=== PATIENT | female | born 1990 | race African-American/Black ===

== ENCOUNTER 2018-09-09 11:45 | Inpatient (IN) ==
[2018-09-09] MEDS ORDERED: CLINDAMYCIN INJ 600 MG in PREMIX 1 EACH IV STA (12:10)
[2018-09-09 13:01] LABS: Basophils % 0.5 % (0.0-0.8); Eosinophils # 0.3 10*3/uL (0.0-0.87); Eosinophils % 4.4 % (0.00-10.9); Hematocrit 43.9 VOL% (35.7-47.0); Hemoglobin 14.1 GM/DL (12.0-16.0); Immature Granulocytes % 0.2 %; Immature Granulocytes Absolute 0.01 #; Lymphocytes # 2.3 10*3/uL (1.4-4.0); Lymphocytes % 35.4 % (21.3-54.2); Mean Corpuscular HGB Conc 32.1 GM/DL (32-36); Mean Corpuscular Volume 87.3 FL (87-102); Mean Platelet Volume 8.6 FL (9.6-12.0); Monocytes % 8.2 % (1.7-12.7); Neutrophils % 51.3 % (38.7-73.9); Platelet Count 265 T/CUMM (130-400); Red Blood Count 5.03 MC/CUMM (3.8-5.5); Red Cell Distribution Width 12.3 % (9.3-17.3); White Blood Count 6.4 T/CUMM (4-12)
[2018-09-09 13:21] LABS: Band Neutrophils 1 % (0-10); Eosinophils 3 % (0-10); Hypochromasia 1+; Lymphocytes 33 % (20-55); Segmented Neutrophils 57 % (50-85); Total Cells Counted 100
[2018-09-09 13:22] LABS: Microcytosis 1+; Platelet Estimate Normal
[2018-09-09 13:55] LABS: Alanine Aminotransferase 40 U/L (13-56); Albumin 3.8 G/DL (3.4-5.0); Alkaline Phosphatase 66 U/L (45-117); Aspartate Amino Transferase 69 U/L (0-37); Bilirubin,Total < 0.39 MG/DL (0.2-1.0); Blood Urea Nitrogen 14 MG/DL (7-18); Calcium 9.1 MG/DL (8.5-10.1); Glucose 264 MG/DL (74-106); Osmolality,Calculated 277.2 MOS/KG (273-304); Total Protein 8.3 G/DL (6.4-8.3)
[2018-09-09] MEDS ORDERED: SODIUM CHLORIDE 0.9% 1,000 ML IV STA (14:31)
[2018-09-09] MEDS ORDERED: INSULIN REGULAR 100 UNIT/ML SUBCUT STA (14:56)
[2018-09-09] MEDS ORDERED: ONDANSETRON 4 MG/2 ML VIAL IV PRN (16:35)
[2018-09-09] MEDS ORDERED: GLUCAGON 1 MG VIAL IM PRN (16:35)
[2018-09-09] MEDS ORDERED: DEXTROSE 50% 25 GM/50 ML VIAL IV PRN (16:35)
[2018-09-09] MEDS: ENOXAPARIN 40 MG/0.4 ML SYRINGE SUBCUT SCH (17:21)
[2018-09-09 17:26] LABS: Apearance,Urine CLEAR (Clear); Bilirubin,Urine Negative (Negative); Blood, Urine Negative (Negative); Glucose,Urine (UA) >=500 mg/dL (Negative); Ketones,Urine 20 mg/dL (Negative); Mucus,Urine Few /LPF (Occasional); Nitrite,Urine Negative (Negative); Protein,Urine >=500 MG/DL; RBC,Urine 4 /HPF (0-4); Squamous Epithelial Cell,Urine Occasional /HPF (0-10); Urine Color Yellow (Yellow); Urine Specific Gravity 1.027 (1.001-1.035); Urine Urobilinogen < 2.0 EU/DL (0.2-1.0); WBC,Urine 7 /HPF (0-6)
[2018-09-09 18:25] LABS: HIV Antigen/Antibody Result Nonreactive (Nonreactive)
[2018-09-09] MEDS ORDERED: CLINDAMYCIN INJ 600 MG in PREMIX 1 EACH IV SCH (20:00)
[2018-09-09] MEDS: INSULIN GLARGINE 100 UNIT/ML SUBCUT SCH (21:43)
[2018-09-09] MEDS: INSULIN LISPRO 100 UNIT/ML SUBCUT SCH (21:43)
[2018-09-09] MEDS: valACYclovir 500 MG TABLET PO SCH (21:44)
[2018-09-10] MEDS: MORPHINE 4 MG/1 ML VIAL IV PRN ×2 (00:12→09:37)
[2018-09-10] MEDS: metroNIDAZOLE INJ 500 MG in PREMIX 1 EACH IV SCH ×4 (03:39→19:22)
[2018-09-10 05:40] LABS: Basophils % 0.5 % (0.0-0.8); Eosinophils # 0.4 10*3/uL (0.0-0.87); Eosinophils % 6.6 % (0.00-10.9); Hematocrit 41.3 VOL% (35.7-47.0); Hemoglobin 13.1 GM/DL (12.0-16.0); Immature Granulocytes % 0.3 %; Immature Granulocytes Absolute 0.02 #; Lymphocytes # 2.7 10*3/uL (1.4-4.0); Lymphocytes % 47.6 % (21.3-54.2); Mean Corpuscular HGB Conc 31.7 GM/DL (32-36); Mean Corpuscular Volume 88.1 FL (87-102); Mean Platelet Volume 8.5 FL (9.6-12.0); Monocytes % 8.3 % (1.7-12.7); Neutrophils % 36.7 % (38.7-73.9); Platelet Count 265 T/CUMM (130-400); Red Blood Count 4.69 MC/CUMM (3.8-5.5); Red Cell Distribution Width 12.4 % (9.3-17.3); White Blood Count 5.8 T/CUMM (4-12)
[2018-09-10 05:53] LABS: Calcium 8.6 MG/DL (8.5-10.1); Risk Ratio 4.35; Thyroid Stimulating Hormone 1.63 uIU/ml (0.358-3.74); VLDL CHOLESTEROL 29.2 MG/DL
[2018-09-10 06:34] LABS: Atypical Lymphocytes Few; Band Neutrophils 2 % (0-10); Eosinophils 2 % (0-10); Lymphocytes 51 % (20-55); Metamyelocytes 1 %; Platelet Estimate Normal; Reactive Lymphocytes Few; Segmented Neutrophils 35 % (50-85); Total Cells Counted 100
[2018-09-10 06:35] LABS: Hypochromasia 1+
[2018-09-10] MEDS: INSULIN LISPRO 100 UNIT/ML SUBCUT SCH ×4 (09:30→21:15)
[2018-09-10] MEDS: LISINOPRIL 20 MG TABLET PO SCH (09:40)
[2018-09-10] MEDS: valACYclovir 500 MG TABLET PO SCH ×2 (09:40→21:14)
[2018-09-10] MEDS: PANTOPRAZOLE 40 MG TABLET PO SCH (09:40)
[2018-09-10] MEDS: ENOXAPARIN 40 MG/0.4 ML SYRINGE SUBCUT SCH (19:22)
[2018-09-10] MEDS: DOXYCYCLINE HYCLATE INJ 100 MG in SODIUM CHLORIDE 0.9% 100 ML IV SCH (21:13)
[2018-09-10] MEDS: FLUCONAZOLE 200 MG TABLET PO SCH (21:14)
[2018-09-10] MEDS: INSULIN GLARGINE 100 UNIT/ML SUBCUT SCH (21:14)
[2018-09-11] MEDS: metroNIDAZOLE INJ 500 MG in PREMIX 1 EACH IV SCH ×3 (00:44→18:18)
[2018-09-11 05:13] LABS: Basophils % 0.4 % (0.0-0.8); Eosinophils # 0.3 10*3/uL (0.0-0.87); Eosinophils % 5.4 % (0.00-10.9); Hematocrit 39.8 VOL% (35.7-47.0); Hemoglobin 12.9 GM/DL (12.0-16.0); Immature Granulocytes % 0.2 %; Immature Granulocytes Absolute 0.01 #; Lymphocytes # 2.7 10*3/uL (1.4-4.0); Lymphocytes % 48.9 % (21.3-54.2); Mean Corpuscular HGB Conc 32.4 GM/DL (32-36); Mean Corpuscular Volume 86.7 FL (87-102); Mean Platelet Volume 8.6 FL (9.6-12.0); Monocytes % 6.1 % (1.7-12.7); Platelet Count 261 T/CUMM (130-400); Red Blood Count 4.59 MC/CUMM (3.8-5.5); Red Cell Distribution Width 12.2 % (9.3-17.3); White Blood Count 5.6 T/CUMM (4-12)
[2018-09-11 05:33] LABS: Calcium 8.6 MG/DL (8.5-10.1); Osmolality,Calculated 278.8 MOS/KG (273-304)
[2018-09-11] MEDS: valACYclovir 500 MG TABLET PO SCH ×2 (10:23→20:37)
[2018-09-11] MEDS: DOXYCYCLINE HYCLATE INJ 100 MG in SODIUM CHLORIDE 0.9% 100 ML IV SCH ×2 (10:24→20:35)
[2018-09-11] MEDS: PANTOPRAZOLE 40 MG TABLET PO SCH (10:24)
[2018-09-11] MEDS: INSULIN LISPRO 100 UNIT/ML SUBCUT SCH ×4 (10:24→20:37)
[2018-09-11] MEDS: LISINOPRIL 20 MG TABLET PO SCH (10:24)
[2018-09-11] MEDS ORDERED: ONDANSETRON ODT 4 MG TABLET PO ONE (16:40)
[2018-09-11] MEDS: ENOXAPARIN 40 MG/0.4 ML SYRINGE SUBCUT SCH (18:19)
[2018-09-11] MEDS: INSULIN GLARGINE 100 UNIT/ML SUBCUT SCH (20:38)
[2018-09-12] MEDS: metroNIDAZOLE INJ 500 MG in PREMIX 1 EACH IV SCH ×2 (00:47→10:46)
[2018-09-12 06:04] LABS: Basophils % 0.3 % (0.0-0.8); Eosinophils # 0.2 10*3/uL (0.0-0.87); Eosinophils % 3.8 % (0.00-10.9); Hematocrit 39.5 VOL% (35.7-47.0); Hemoglobin 12.6 GM/DL (12.0-16.0); Immature Granulocytes % 0.2 %; Immature Granulocytes Absolute 0.01 #; Lymphocytes # 2.9 10*3/uL (1.4-4.0); Lymphocytes % 45.8 % (21.3-54.2); Mean Corpuscular HGB Conc 31.9 GM/DL (32-36); Mean Corpuscular Volume 87.6 FL (87-102); Mean Platelet Volume 8.8 FL (9.6-12.0); Monocytes % 6.1 % (1.7-12.7); Neutrophils % 43.8 % (38.7-73.9); Platelet Count 282 T/CUMM (130-400); Red Blood Count 4.51 MC/CUMM (3.8-5.5); Red Cell Distribution Width 12.2 % (9.3-17.3); White Blood Count 6.4 T/CUMM (4-12)
[2018-09-12 06:14] LABS: Calcium 8.6 MG/DL (8.5-10.1); Osmolality,Calculated 279.8 MOS/KG (273-304)
[2018-09-12] MEDS: INSULIN LISPRO 100 UNIT/ML SUBCUT SCH ×2 (08:20→11:52)
[2018-09-12] MEDS: valACYclovir 500 MG TABLET PO SCH (08:21)
[2018-09-12] MEDS: LISINOPRIL 20 MG TABLET PO SCH (08:21)
[2018-09-12] MEDS: FLUCONAZOLE 200 MG TABLET PO SCH (08:21)
[2018-09-12] MEDS: DOXYCYCLINE HYCLATE INJ 100 MG in SODIUM CHLORIDE 0.9% 100 ML IV SCH (08:21)
[2018-09-12] MEDS: PANTOPRAZOLE 40 MG TABLET PO SCH (08:21)
[2018-09-12 12:35] VITALS: BP 136/74
== END 2018-09-12 14:35 | disposition home or self-care (01) | DRG 760 ==
LOC: N.ED 11:45 → N.EDINP 16:23 → N.5E 19:02
PROVIDERS: ADMIT Internal Medicine; ATTEND Internal Medicine